=== PATIENT | male | born 1985 | race Caucasian/White ===

== ENCOUNTER 2016-05-29 13:46 | Inpatient (IN) | payer OTHER ==
[~2016-05-29] VITALS: Ht 188 cm; Wt 99.3 kg
[2016-05-29 14:41] LABS: HEMOGLOBIN 17.6 g/dl (13.5-18.0); MEAN CELL VOLUME 80 fl (80.0-100.0); MEAN CORPUSCULAR HEMOGLOBIN 25 pg (27.0-31.0); MEAN CORPUSCULAR HGB CONC 32 g/dl (33.0-37.0); MEAN PLATELET VOLUME 9.3 fl (7.4-10.4); PLATELET COUNT 285 K/mm3 (130-400); RED BLOOD COUNT 6.92 M/mm3 (4.20-5.60); REDCELL DISTRIBUTION WIDTH-CV 18.6 % (11.5-14.5); WHITE BLOOD COUNT 17.1 K/mm3 (4.8-10.8)
[2016-05-29 14:50] LABS: HEMATOCRIT 55.2 % (42.0-52.0)
[2016-05-29 14:51] LABS: ADD PATHOLOGY DIFF REVIEW NO
[2016-05-29 14:59] LABS: ADJUSTED CALCIUM 9.5 mg/dL (8.4-10.2); ALBUMIN 5.1 gm/dL (3.5-5.0); BILIRUBIN,TOTAL 0.7 mg/dL (0.0-1.0); CALCIUM 10.4 mg/dL (8.4-10.2); CREATININE, serum 3.85 mg/dL (0.66-1.25); TOTAL PROTEIN 10.2 gm/dL (6.4-8.2)
[2016-05-29 15:04] LABS: POTASSIUM 5.8 mmol/L (3.4-5.0)
[2016-05-29 15:52] LABS: BAND 39 % (0-10); NEUTROPHILS 44 % (42.0-75.2); TOTAL CELLS COUNTED 100
[2016-05-29 15:53] LABS: ANISOCYTOSIS 2+; PLATELET ESTIMATE NORMAL (NORMAL); POLYCHROMASIA 1+
[2016-05-29] MEDS ORDERED: NORCO 325 MG-51 TAB PO (16:05)
[2016-05-29 16:55] LABS: CALCIUM 8.7 mg/dL (8.4-10.2); CREATININE, serum 2.46 mg/dL (0.66-1.25)
[2016-05-29 16:56] LABS: POTASSIUM 7.3 mmol/L (3.4-5.0)
[2016-05-29 17:12] LABS: PH 5 (5-8); SQUAMOUS EPITHELIAL 0-2 /hpf; URINE APPEARANCE Clear; URINE BACTERIA Rare /hpf; URINE BILIRUBIN Negative (NEGATIVE); URINE BLOOD Negative (NEGATIVE); URINE COLOR Yellow; URINE GLUCOSE Negative (NEGATIVE); URINE KETONE Negative (NEGATIVE); URINE RBC 0-2 /hpf; URINE UROBILINOGEN Negative (NEGATIVE); URINE WBC 0-2 /hpf
[2016-05-29 18:30] VITALS: BP 149/96; PULSE 94; TEMP 98.5
[2016-05-29 19:57] VITALS: BP 108/65; PULSE 100; TEMP 98.8
[2016-05-29 21:19] LABS: CALCIUM 9.5 mg/dL (8.4-10.2); CREATININE, serum 1.74 mg/dL (0.66-1.25)
[2016-05-29 21:20] LABS: POTASSIUM 4.4 mmol/L (3.4-5.0)
[2016-05-29 23:21] VITALS: BP 136/90; PULSE 111; TEMP 98.6
[2016-05-30 03:33] VITALS: BP 108/86; PULSE 85; TEMP 98.5
[2016-05-30 05:33] LABS: HYALINE CAST >12 /lpf; PH 5 (5-8); SQUAMOUS EPITHELIAL 0-2 /hpf; URINE APPEARANCE Hazy; URINE BACTERIA None Seen /hpf; URINE BILIRUBIN Negative (NEGATIVE); URINE BLOOD Negative (NEGATIVE); URINE COLOR Yellow; URINE GLUCOSE Negative (NEGATIVE); URINE KETONE Negative (NEGATIVE); URINE RBC 0-2 /hpf; URINE UROBILINOGEN Negative (NEGATIVE)
[2016-05-30 07:41] LABS: BASO % 0.2 % (0.0-2.0); EOS # 0.1 (0.0-0.7); EOS % 0.6 % (0-4.0); GRAN # 4.9 (1.4-6.5); GRAN % 60.6 % (42.2-75.2); HEMATOCRIT 46.7 % (42.0-52.0); LYMPH % 12.1 % (20.0-51.0); MEAN CELL VOLUME 78 fl (80.0-100.0); MEAN CORPUSCULAR HEMOGLOBIN 26 pg (27.0-31.0); MEAN CORPUSCULAR HGB CONC 33 g/dl (33.0-37.0); MEAN PLATELET VOLUME 10.3 fl (7.4-10.4); MONO # 2.1 (0.1-0.6); MONO % 26.1 % (1.7-9.3); PLATELET COUNT 235 K/mm3 (130-400); RED BLOOD COUNT 5.98 M/mm3 (4.20-5.60); REDCELL DISTRIBUTION WIDTH-CV 17.5 % (11.5-14.5); WHITE BLOOD COUNT 8.2 K/mm3 (4.8-10.8)
[2016-05-30 07:51] VITALS: BP 129/80; PULSE 86; TEMP 97.7
[2016-05-30 08:05] LABS: ADJUSTED CALCIUM 9.4 mg/dL (8.4-10.2); ALBUMIN 4.3 gm/dL (3.5-5.0); CALCIUM 9.6 mg/dL (8.4-10.2); POTASSIUM 4.3 mmol/L (3.4-5.0); TOTAL PROTEIN 8.1 gm/dL (6.4-8.2)
[2016-05-30 08:09] LABS: CREATININE, serum 1.46 mg/dL (0.66-1.25)
[2016-05-30 08:10] LABS: BILIRUBIN,TOTAL 0.7 mg/dL (0.0-1.0)
[2016-05-30 08:14] LABS: HEMOGLOBIN 15.3 g/dl (13.5-18.0)
[2016-05-30 11:51] VITALS: BP 143/78; PULSE 99; TEMP 97.9
[2016-05-30 16:37] VITALS: BP 118/84; PULSE 89; TEMP 97.3
[2016-05-30 20:28] VITALS: BP 125/88; PULSE 76; TEMP 98.3
[2016-05-30 22:48] LABS: PROT-CREAT RATIO, URINE 0.1 (())
[2016-05-30 23:55] VITALS: BP 135/85; PULSE 74; TEMP 98.2
[2016-05-31 03:48] VITALS: BP 130/76; PULSE 68; TEMP 97.7
[2016-05-31 08:16] VITALS: BP 129/68; PULSE 63; TEMP 98.1
[2016-05-31 09:58] LABS: HEMATOCRIT 37.6 % (42.0-52.0); MEAN CELL VOLUME 79 fl (80.0-100.0); MEAN CORPUSCULAR HGB CONC 32 g/dl (33.0-37.0); MEAN PLATELET VOLUME 10.4 fl (7.4-10.4); PLATELET COUNT 215 K/mm3 (130-400); RED BLOOD COUNT 4.79 M/mm3 (4.20-5.60); REDCELL DISTRIBUTION WIDTH-CV 16.2 % (11.5-14.5); WHITE BLOOD COUNT 5.2 K/mm3 (4.8-10.8)
[2016-05-31 10:04] LABS: ALBUMIN 3.4 gm/dL (3.5-5.0); BILIRUBIN,TOTAL 0.6 mg/dL (0.0-1.0); CALCIUM 8.5 mg/dL (8.4-10.2); CREATININE, serum 0.83 mg/dL (0.66-1.25); POTASSIUM 3.8 mmol/L (3.4-5.0); TOTAL PROTEIN 6.6 gm/dL (6.4-8.2)
[2016-05-31 10:15] LABS: HEMOGLOBIN 12.2 g/dl (13.5-18.0); MEAN CORPUSCULAR HEMOGLOBIN 25 pg (27.0-31.0)
[2016-05-31] MEDS ORDERED: TYLENOL 500MG500 MG PO (11:37)
[2016-05-31] MEDS ORDERED: IMODIUM A-D2 MG PO (11:37)
[2016-05-31 14:20] LABS: BAND 14 % (0-10); BASOPHIL 1 % (0-2); EOSINOPHIL 2 % (0-4); NEUTROPHILS 42 % (42.0-75.2); TOTAL CELLS COUNTED 100
[2016-05-31 14:21] LABS: ADD PATHOLOGY DIFF REVIEW YES
[2016-05-31 14:23] LABS: ANISOCYTOSIS 1+; OVALOCYTES 1+
[2016-05-31 14:26] LABS: PLATELET ESTIMATE NORMAL (NORMAL)
[2016-06-02 08:34] LABS: PATHOLOGY DIFF REVIEW OK
== END 2016-05-31 11:50 | disposition home or self-care (01) | DRG 683 ==
LOC: COL.ER 13:46 → MEDICAL 17:15
PROVIDERS: Emergency Medicine; Internal Medicine Nephrology
DX: N17.9 Acute kidney failure, unspecified (principal); E87.2 Acidosis; Q43.1 Hirschsprung's disease; E87.5 Hyperkalemia; E86.0 Dehydration; K52.9 Noninfective gastroenteritis and colitis, unspecified; R73.9 Hyperglycemia, unspecified; Z90.49 Acquired absence of other specified parts of digestive tract
CPT/HCPCS: J1815; J2405; J2550; J7030; Q9967